=== PATIENT | male | born 1955 | race Two or more races ===

== ENCOUNTER 2017-06-07 21:15 | Emergency (ER) | payer SELFPAY ==
[2017-06-07 21:58] LABS: CHLORIDE,CL 106 mmol/L (101-111); SODIUM,NA 141 mmol/L (135-145)
--- NOTE | 2017-06-09 10:05 | EKG ---
06/07/2017- [facility]ICK - EKG per my reading shows sinus rhythm at a rate of 79, inferior inverted T- waves. MOD /[id number]
== END 2017-06-07 21:51 | disposition left against medical advice (07) ==
LOC: DL.ED 21:15
DX: Z53.21 Procedure and treatment not carried out due to patient leaving prior to being seen by health care provider (principal)
CPT/HCPCS: 36415; 80053; 80305; 81001; 82150; 83690; 84484; 85025; 93005; 93010; G0480